=== PATIENT | female | born 1930 | race Caucasian/White ===

== ENCOUNTER → 2017-10-03 | Outpatient (CLI) | payer OTHER, BC ==
[~2017-10-03] MED LIST: ALLO100T PO; ASPI81TA28 PO; DOCU100C31 PO; EZET10TA63 PO; FOLI1TAB8 PO; FURO-85 PO; HYDR-5688 PO; ISOS60TA25 PO; LEVO25TA5 PO; LORA-741 PO; LOSA50TA6 PO; METO50TA16 PO; NTRGSL/4 UT; PRAZ1CAP10 PO; PRLSR20 PO; ROSU20TA PO; SENN-61 PO
[2017-10-03 17:55] LABS: BASO % 0.6 %; BASO ABS # 0.03 K/uL (0-0.2); EOS % 2.1 %; EOS ABS # 0.11 K/uL (0-0.5); HEMATOCRIT 31.8 % (37-47); HEMOGLOBIN 10.1 g/dL (12.0-16.0); IG# 0.01 K/uL (0.00-0.02); LYMPH % 25.6 %; LYMPH ABS # 1.37 K/uL (1.2-3.4); MEAN CELL VOLUME 93.5 fL (80-100); MEAN CORPUSCULAR HEMOGLOBIN 29.7 pg (25-34); MEAN CORPUSCULAR HGB CONC 31.8 g/dl (32-36); MEAN PLATELET VOLUME 10.9 fL (7.4-10.4); MONO % 10.5 %; MONO ABS # 0.56 K/uL (0.11-0.59); NEUT ABS # 3.27 K/uL (1.4-6.5); PLATELET COUNT 230 K/uL (130-400); RED CELL DISTRIBUTION WIDTH CV 16.6 % (11.5-14.5); RED CELL DISTRIBUTION WIDTH SD 56.6 fL (36.4-46.3); WHITE BLOOD COUNT 5.35 K/uL (4.8-10.8)
[2017-10-03 18:19] LABS: BLOOD UREA NITROGEN 18 mg/dl (7-18); CREATININE 1.18 mg/dl (0.60-1.20); GLUCOSE 97 mg/dl (70-99)
[2017-10-03 18:20] LABS: ALBUMIN 3.1 gm/dl (3.4-5.0); ALT/SGPT 14 U/L (12-78); AST/SGOT 16 U/L (15-37); CALCIUM 8.5 mg/dl (8.5-10.1); CARBON DIOXIDE 28 mmol/L (21-32); POTASSIUM 3.7 mmol/L (3.5-5.1); SODIUM 138 mmol/L (136-145)
[2017-10-03 18:24] LABS: ALKALINE PHOSPHATASE 181 U/L (45-117); TRANSFERRIN 224 mg/dl (200-360)
== END | disposition home or self-care (01) ==
LOC: C.LABMFLN 11:01
PROVIDERS: ATTEND Family Medicine
DX: I10 Essential (primary) hypertension (principal); F32.9 Major depressive disorder, single episode, unspecified